=== PATIENT | female | born 1970 | race Caucasian/White ===

== ENCOUNTER 2018-04-14 21:24 | Emergency (ER) | payer MEDICAID ==
[~2018-04-14] VITALS: Wt 86.0 kg
[2018-04-14] MEDS ORDERED: ACETAMINOPHEN 325 MG TAB PO ONE (22:00)
[2018-04-14] MEDS ORDERED: ACET500C5 PO (22:50)
[2018-04-14] MEDS ORDERED: AZIT250T PO (22:50)
[2018-04-14] MEDS ORDERED: D-ME473S2 PO (22:50)
--- NOTE | 2018-04-14 22:52 | ERD ---
ER Documentation Chief Complaint Chief Complaint COUGH X'S 1 MONTH HPI 47-year-old female presents with a cough for last month. She has mild productive cough. She has sore throat as well. She denies chest pain, vomiting, abdominal pain, additional symptoms. She has low-grade temperature triage. She is tactile fevers at home but no measured fevers. ROS All systems reviewed and are negative except as per history of present illness. Medications Home Meds Active Scripts Acetaminophen* (Tylophen*) 500 Mg Capsule, 1 CAP PO Q6H PRN for PAIN AND OR ELEVATED TEMP, #15 CAP Prov:LEODAN RIZZO MD 04/14/18 Dextromethorphan Hb-Promethazine Hcl* (Promethazine DM* Syrup) 473 Ml Syrup, 5 ML PO Q6 PRN for COUGH for 5 Days, ML Prov:LEODAN RIZZO MD 04/14/18 Azithromycin* (Zithromax*) 250 Mg Tablet, 250 MG PO .ZPACK DIRECTED, #6 TAB TAKE 500 MG (2 TABS) THE FIRST DAY THEN 250 MG (1 TAB) DAYS 2-5 Prov:LEODAN RIZZO MD 04/14/18 Allergies Allergies: Coded Allergies: No Known Drug Allergies (Verified Allergy, Unknown, 10/21/14) PMhx/Soc Medical and Surgical Hx: pt denies Medical Hx, pt denies Surgical Hx Hx Alcohol Use: No Hx Substance Use: No Hx Tobacco Use: No Smoking Status: Never smoker FmHx Family History: No diabetes, No coronary disease, No other Physical Exam Vitals Vital Signs Date Temp Pulse Resp B/P (MAP) Pulse Ox O2 O2 Flow FiO2 Time Delivery Rate 04/14/18 100.1 74 18 176/83 98 21:26 (114) Physical Exam Const: No acute distress Head: Atraumatic Eyes: Normal Conjunctiva ENT: Normal External Ears, Nose and Mouth. Neck: Full range of motion. No meningismus. Resp: Clear to auscultation bilaterally. Coarse cough without rales or wheezing appreciated. Cardio: Regular rate and rhythm, no murmurs Abd: Soft, non tender, non distended. Normal bowel sounds Skin: No petechiae or rashes Back: No midline or flank tenderness Ext: No cyanosis, or edema Neur: Awake and alert Psych: Normal Mood and Affect Results 24 hrs Current Medications Medications Dose Sig/Bre Start Time Status Last (Trade) Ordered Route PRN Stop Time Admin Dose Reason Admin 650 mg ONCE ONCE 04/14/18 DC 04/14/18 Acetaminophen PO 22:00 04/14/18 21:52 (Tylenol 22:01 Tab) Procedures/MDM Chest X-ray 1V Interpreted by me: Soft Tissue: No acute abnormalities Bones: No acute abnormalities Mediastinum/Cardiac Silhouette/Lungs: No acute abnormalities impression-normal 1 view chest x-ray Presents with cough for the last month. Is mildly productive. She has low- grade temperature. She has signs of otitis media. She has no evidence for hypoxemia, rest or distress. We will treat empirically given the duration with Zithromax, promethazine, Tylenol, primary care follow-up and return precautions. Departure Diagnosis: Primary Impression: Cough Condition: Stable Patient Instructions: Bronchitis, Antiobiotic Treatment (Adult) Referrals: NO PRIMARY,CARE PHYSICIAN (PCP) Additional Instructions: X-ray normal hoy.. Cheque otro vez con montero doctor primario en el proximo silva or regresa para mas o nueva simptomas. LEODAN RIZZO MD Apr 14, 2018 22:52
[2018-04-14 23:25] VITALS: BP 122/58; PULSE 70; RESP 18
== END 2018-04-14 23:26 | disposition home or self-care (01) ==
LOC: FTE 21:24
DX: R05 Cough (principal)
CPT/HCPCS: 71045; Z7502; Z7610